=== PATIENT | female | born 1965 | race Caucasian/White ===

== ENCOUNTER 2016-07-07 19:09 | Emergency (ER) | payer OTHER ==
[2016-07-07 20:12] LABS: HEMOGLOBIN 13.7 gm/dl (12.3-15.3); RED BLOOD COUNT 4.53 M/UL (4.00-5.10); WHITE BLOOD COUNT 11.2 K/UL (4.5-11.0)
[2016-07-07 20:43] LABS: BUN/CREATININE RATIO 16 (0-10)
== END 2016-07-07 21:50 | disposition home or self-care (01) ==
LOC: ER1 19:09
PROVIDERS: Physician Assistant
DX: M77.8 Other enthesopathies, not elsewhere classified (principal); B86 Scabies; J44.9 Chronic obstructive pulmonary disease, unspecified; F17.210 Nicotine dependence, cigarettes, uncomplicated; Z88.0 Allergy status to penicillin
CPT/HCPCS: 36415; 70450; 71010; 80053; 82550; 82553; 83874; 84484; 85025; 85610; 85730; 93005; 99284

== ENCOUNTER → 2016-07-19 | Outpatient (CLI) | payer OTHER | LOC: MAMO 11:40 | DX: Z12.31 Encounter for screening mammogram for malignant neoplasm of breast (principal) | CPT/HCPCS: G0202 ==

== ENCOUNTER → 2016-09-03 | Outpatient (CLI) | payer OTHER | LOC: MAMO 09:00 | DX: R92.1 Mammographic calcification found on diagnostic imaging of breast (principal) | CPT/HCPCS: G0206 ==

== ENCOUNTER → 2016-10-08 | Outpatient (CLI) | payer OTHER | LOC: US 10:00 | DX: R92.8 Other abnormal and inconclusive findings on diagnostic imaging of breast (principal) | CPT/HCPCS: 76641-LT ==